=== PATIENT | female | born 1995 | race Caucasian/White ===

== ENCOUNTER → 2017-12-22 18:12 | Outpatient (CLI) | payer OTHER, SELFPAY ==
[2017-12-22 20:56] LABS: Chlamydia Trachomatis by PCR Negative (Negative); Neisserai gonorrhoeae by PCR Negative (Negative); Probe Check PASS; Sample Adequacy Control PASS; Specimen Processing Control PASS
== END ==
PROVIDERS: Visit Provider Nurse Practitioner Women's Health
DX: Z11.3 Encounter for screening for infections with a predominantly sexual mode of transmission (principal)
CPT/HCPCS: 87491; 87591

== ENCOUNTER → 2018-01-22 14:57 | Outpatient (CLI) | payer OTHER, SELFPAY | PROVIDERS: Visit Provider Obstetrics & Gynecology | DX: R35.0 Frequency of micturition (principal) | CPT/HCPCS: 87086; 87088 ==

== ENCOUNTER → 2018-01-27 11:09 | Outpatient (CLI) | payer OTHER, SELFPAY ==
[2018-01-27 14:49] LABS: Chlamydia Trachomatis by PCR Negative (Negative); Neisserai gonorrhoeae by PCR Negative (Negative); Probe Check PASS; Sample Adequacy Control PASS; Specimen Processing Control PASS
== END ==
PROVIDERS: Visit Provider Nurse Practitioner Women's Health
DX: Z11.3 Encounter for screening for infections with a predominantly sexual mode of transmission (principal)
CPT/HCPCS: 87491; 87591

== ENCOUNTER → 2018-02-15 09:02 | Outpatient (CLI) | payer OTHER, SELFPAY ==
[2018-02-15 12:02] LABS: HIV - WCH Non-Reactive (Nonreactive)
[2018-02-16 20:07] LABS: HCV Quant. RNA PCR HCV Not Detected IU/mL (.)
[2018-02-17 07:32] LABS: HSV 1 IgG < 0.91 index (0.00-0.90); HSV 2 IgG < 0.91 index (0.00-0.90)
[2018-02-19 05:43] LABS: Rapid Plasmin Reagin (RPR) NONREACTIVE (NONREACTIVE)
== END ==
PROVIDERS: Referring Provider Nurse Practitioner Women's Health; Visit Provider Nurse Practitioner Women's Health
DX: A64 Unspecified sexually transmitted disease (principal); Z11.3 Encounter for screening for infections with a predominantly sexual mode of transmission; Z20.2 Contact with and (suspected) exposure to infections with a predominantly sexual mode of transmission
CPT/HCPCS: 36415; 86592; 86695; 86696; 86703; 87522

== ENCOUNTER → 2018-02-15 18:24 | Outpatient (CLI) | payer OTHER, SELFPAY ==
[2018-02-15 20:31] LABS: Chlamydia Trachomatis by PCR Negative (Negative); Neisserai gonorrhoeae by PCR Negative (Negative); Probe Check PASS; Sample Adequacy Control PASS; Specimen Processing Control PASS
== END ==
PROVIDERS: Referring Provider Nurse Practitioner Women's Health; Visit Provider Nurse Practitioner Women's Health
DX: Z20.2 Contact with and (suspected) exposure to infections with a predominantly sexual mode of transmission (principal)
CPT/HCPCS: 87491; 87591

== ENCOUNTER → 2019-04-29 15:00 | Outpatient (CLI) | payer OTHER, SELFPAY ==
[2019-04-29 14:35] VITALS: BMI 31.2
[2019-04-29 16:34] LABS: HIV - WCH Non-Reactive (Nonreactive)
[2019-04-29 18:23] LABS: Chlamydia Trachomatis by PCR Negative (Negative); Neisserai gonorrhoeae by PCR Negative (Negative); Probe Check PASS; Sample Adequacy Control PASS; Specimen Processing Control PASS
[2019-05-02 20:06] LABS: HCV Quant. RNA PCR HCV Not Detected IU/mL (.)
[2019-05-03 00:28] LABS: HSV 1 IgG < 0.91 index (0.00-0.90); HSV 2 IgG < 0.91 index (0.00-0.90)
[2019-05-05 00:56] LABS: Rapid Plasmin Reagin (RPR) NONREACTIVE (NONREACTIVE)
[2019-05-05 16:01] LABS: HPV Reflexed? NOT INDICATED
== END ==
PROVIDERS: Referring Provider Nurse Practitioner Women's Health; Visit Provider Nurse Practitioner Women's Health
DX: Z11.3 Encounter for screening for infections with a predominantly sexual mode of transmission (principal); Z12.4 Encounter for screening for malignant neoplasm of cervix
CPT/HCPCS: 36415; 86592; 86695; 86696; 86703; 87491; 87522; 87591; 88175; G0145

== ENCOUNTER 2019-11-12 00:47 | Emergency (ER) | payer OTHER, SELFPAY ==
[2019-05-13 14:15] VITALS: BMI 31.2
[2019-11-12 00:49] VITALS: BP 169/119; PULSE 109; RESP 16; TEMP 37; O2SAT 97; BMI 38.2
--- NOTE | 2019-11-12 00:50 | RAD_ITS ---
STUDY: X-RAY - RIGHT FOOT CLINICAL: Female, 24 years old. fell down some stairs tonight -- c/o pain area of rt lateral malleolus TECHNIQUE: 3 view(s) of the foot. COMPARISON: None. FINDINGS: Normal talus, calcaneus, and tarsal bones. Normal visualized subtalar, talonavicular, calcaneocuboid, tarsal and tarsometatarsal articulations. Normal metatarsi. Normal metatarsophalangeal joint of the great toe. Normal tibial and fibular sesamoid bones. Normal interphalangeal joint of the great toe. Normal phalanges of the great toe. Normal second through fifth metatarsophalangeal joints. Normal interphalangeal joints and phalanges of the lesser toes. The soft tissue structures are unremarkable. RAD/Foot min 3 Views IMPRESSION: Normal x-ray examination of the foot. Electronically Signed: Ariel Green, at 1:37 EDT Tel , Service support ,
--- NOTE | 2019-11-12 00:50 | RAD_ITS ---
STUDY: X-RAY - RIGHT ANKLE REASON FOR EXAM: Female, 24 years old. fell down some stairs tonight -- c/o pain area of rt lateral malleolus TECHNIQUE: 3 view(s) of the ankle. COMPARISON: None. FINDINGS: Normal visualized distal tibia and fibula. Normal medial and lateral malleoli. Normal tibiotalar articulation and ankle mortise. Normal visualized talus and calcaneus. The visualized subtalar, talonavicular, calcaneocuboid and tarsal articulations are normal. Subcutaneous soft tissue edema is seen at the lateral aspect of the ankle. RAD/Ankle min 3 Views IMPRESSION: There is no acute bone injury of the ankle. Electronically Signed: Ariel Green, at 1:45 EDT Tel , Service support ,
--- NOTE | 2019-11-12 00:50 | ED.VIS.GEN ---
History of Present Illness Chief Complaint: Lower Extremity Injury Informant: Patient Narrative: Patient states that just prior to arrival she is coming down 5 stairs and she missed a couple steps and sustained an injury to the right ankle and foot. She states she felt a pop notes swelling and pain. She denies any other injuries. Past Medical History - Allergies and Home Meds Allergies/Adverse Reactions: Allergies No Known Allergies Allergy (Verified 05/13/19 13:53) Primary Care Physician: Kelsie Knight MD [NON-STAFF] - Smoking Status: Never smoker Review of Systems General: Denies: Chills, Fever, Sweats Eyes: Denies: Visual changes - bilaterally, Diplopia ENT: Denies: Rhinorrhea, Sore throat Cardiovascular: Denies: Chest pain, Palpitations Respiratory: Denies: Dyspnea, Cough, Dyspnea on exertion Gastrointestinal: Denies: Abdominal pain, Nausea, Vomiting, Diarrhea, Melena, Hematochezia Genitourinary: Denies: Dysuria, Hematuria, Frequency Musculoskeletal: Reports: Swelling, Extremity Pain. Denies: Back pain Skin: Denies: Rash, Wounds Neurological: Denies: Headache, Weakness, Numbness Physical Exam Inital Vital Signs reviewed: Yes General: Well nourished, Well developed, Obese, No Acute Distress Head: Normocephalic, Atraumatic Eyes: Perrl, EOMI ENT: Moist mucous membranes, No rhinorrhea Neck: Supple, Nontender Cardiovascular: Regular rate, Regular rhythm, No murmurs Respiratory: No distress, CTA bilaterally, Chest nontender Abdomen: Soft, Nontender, Nondistended, Normal bowel sounds Back: Nontender, Normal Inspection Extremities: Tenderness - Patient has pain swelling over the right ankle particular the lateral malleolus. There is some mild midfoot tenderness. No fifth metatarsal pain. No fibular head pain. There is also no tibial shaft pain Skin: Normal color, No rash Neurological: Alert, Oriented x3, Cranial nerves II-XII grossly intact, Normal Strength, Normal Sensation Psychological: Normal affect, Normal Mood Diagnostic/Tx/Re-eval Clinical Impression(s) from Imaging Studies Ankle X-Ray 11/12/19 00:50 IMPRESSION: There is no acute bone injury of the ankle. Electronically Signed: Ariel Green at 1:45 EDT Tel , Service support , Foot X-Ray 11/12/19 00:50 IMPRESSION: Normal x-ray examination of the foot. Electronically Signed: Ariel Green, at 1:37 EDT Tel , Service support , - Medical Decision Making X-rays of the foot and ankle were negative for fracture. Patient was placed in [place] wrap and crutches as needed until she is able to bear weight. Patient declined pain medication in the ED. I recommend Tylenol Motrin at home and continued ice patient should follow-up in 10 to 14 days if not improved ED Disposition - Plan for ED Patient: Disposition: Home or Assisted Living Diagnosis: Right ankle sprain Instructions: ED Sprain Ankle Referrals: Kelsie Knight MD [NON-STAFF] - 10-14 Days if not better
[2019-11-12 02:03] VITALS: BP 162/102; PULSE 115; RESP 15; O2SAT 98
== END 2019-11-12 02:07 | disposition home or self-care (01) ==
PROVIDERS: Emergency Provider Emergency Medicine; PCP Orthopaedic Surgery
DX: S93.401A Sprain of unspecified ligament of right ankle, initial encounter (principal); E66.9 Obesity, unspecified; W10.9XXA Fall (on) (from) unspecified stairs and steps, initial encounter; Y93.01 Activity, walking, marching and hiking; Y92.89 Other specified places as the place of occurrence of the external cause; Y99.8 Other external cause status
CPT/HCPCS: 73610; 73630; 99283

== ENCOUNTER → 2020-05-02 | Outpatient (CLI) | payer OTHER, SELFPAY ==
[2020-05-02 15:14] VITALS: BMI 41.8
[2020-05-02 19:22] LABS: Chlamydia Trachomatis by PCR Negative (Negative); Neisserai gonorrhoeae by PCR Negative (Negative); Probe Check PASS; Sample Adequacy Control PASS; Specimen Processing Control PASS
[2020-05-09 21:10] LABS: HPV APTIMA, High Risk Positive (Negative); HPV Reflexed? YES, CHARGE PATIENT
== END | disposition home or self-care (01) ==
LOC: LABSPEC 16:51
PROVIDERS: PCP Orthopaedic Surgery; Visit Provider Nurse Practitioner Women's Health
DX: Z12.4 Encounter for screening for malignant neoplasm of cervix (principal)
CPT/HCPCS: 87491; 87591; 87624; 88175; G0145

== ENCOUNTER 2020-10-28 16:50 | Emergency (ER) | payer OTHER, SELFPAY ==
[2020-05-02 15:14] VITALS: BMI 41.8
[2020-10-28] VITALS (7 sets, daily range): BP systolic 144–162; BP diastolic 87–115; PULSE 118–141; RESP 19–28; TEMP 36; O2SAT 92–94; BMI 39.9
--- NOTE | 2020-10-28 16:54 | EKG12_ITS ---
Test Reason : Blood Pressure : / mmHG Vent. Rate : 125 BPM Atrial Rate : 125 BPM P-R Int : 150 ms QRS Dur : 082 ms QT Int : 306 ms P-R-T Axes : 066 039 047 degrees QTc Int : 441 ms Sinus tachycardia Otherwise normal ECG Confirmed by BRISEIDA MEYER, MASON ([id number]), news editor CLARE SKAGGS ([id number]) on 10/29/2020 11:26:31 AM Referred By: SHEN Confirmed By:MASON GOINS MD
--- NOTE | 2020-10-28 17:00 | ED.VIS.DYS ---
HPI History of Present Illness Chief Complaint: Shortness of Breath Informant: patient Onset/Context/Timing Onset: Yesterday Context: gradual Timing: Continuous Quality: Positive for Wheezing Current Severity: Moderate Maximum Severity: Moderate Associated Symptoms cough, fever and clear sputum Chest Pain: Positive for Tightness Narrative Narrative: 25-year-old female no significant past medical nor surgical history. States yesterday she started having cough with clear sputum mild shortness of breath today worse with wheezing and a subjective fever at home. Denies nausea, vomiting or diarrhea. No history of DVT or PE. No recent travel, surgery or immobilization. She does smoke occasionally. She is on control pills. She denies any calf pain or swelling. No hemoptysis. She has had both Covid vaccinations. PE Risk Factors: Negative for Cancer, OCP + Smoking + > 35, Prior DVT or PE, Recent immobilization, Recent surgery and Recent travel Prior similar symptoms: No Recent Illness/Hospitalization: No [facility] Medical History (Updated 10/28/20 @ 19:[address] Deric Rodriguez MD) Anxiety and depression History of migraine headaches Home Medications venlafaxine 75 mg capsule,extended release 24 hr 150 mg PO DAILY 04/29/19 [History Last Taken Unknown] norethindrone (contraceptive) 0.35 mg tablet 0.35 mg PO QDAY #84 tab 05/02/20 [Rx Last Taken Unknown] albuterol sulfate [Proventil HFA] 2 puff INHALATION Q6H PRN #6.7 g 10/28/20 [Rx Last Taken Unknown] prednisone 40 mg PO DAILY 5 Days #10 tab 10/28/20 [Rx Last Taken Unknown] Allergy/AdvReac Type Severity Reaction Status Date / Time azithromycin Allergy Rash Verified 10/28/20 16:51 Family History Father Diabetes Hypertension Surgical History History of wisdom tooth extraction, class II edentulism Social History adopted: No household members: family housing: house number of children: 0 current occupational status: employed and student 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 Review of Systems ROS Unobtainable: Denies due to encephalopathy Constitutional Constitutional ED: Reports fever(s); Denies chills Eyes Eyes: Denies change in vision ENT ENT ED: Denies ear pain Cardiovascular Cardiovascular: Denies chest pain or palpitations Respiratory/Chest Respiratory/Chest: Reports cough, dyspnea and sputum Gastrointestinal Gastrointestinal: Denies abdominal pain, constipation, diarrhea, nausea or vomiting Genitourinary Genitourinary ED: Denies dysuria Musculoskeletal Musculoskeletal: Denies myalgias Integumentary Denies rash Neurologic Neurologic: Denies headache(s) Psychiatric Psychiatric: Reports anxiety; Denies depression Endocrine Endocrinology: Denies polyuria Hematologic/Lymphatic Hematologic/Lymphatic: Denies easy bruising Allergic/Immunologic Allergic/Immunologic ED: Denies urticaria EXAM Physical Exam Narrative Exam Narrative: Female anxious. Vital signs blood pressure 162/115 pulse 137 respiratory rate 28 pulse ox 93% on room air. She is actively wheezing inspiratory and expiratory. HEENT exam unremarkable. Neck nontender no JVD. No lymphadenopathy. Lungs expiratory expiratory wheezing bilaterally. Equal symmetrical. No rales or rhonchi. Heart tachycardic no murmur. Abdomen soft nontender. Moving all 4 extremities. Calves are nontender without edema or cords. Neurologic exam normal. Const Vital Signs: 10/28/20 16:51 10/28/20 17:18 10/28/20 17:19 Temperature 96.8 F L Temperature Source Temporal Pulse Rate 137 H 121 H Respiratory Rate 28 H 24 H Respiratory Effort Short of Breath Labored Respiratory Depth Deep Respiratory Pattern Tachypnea Blood Pressure 162/115 H 158/105 H Blood Pressure Mean 130 122 Pulse Ox 93 94 Oxygen Delivery Method Room Air Room Air Room Air 10/28/20 17:25 10/28/20 18:07 10/28/20 18:47 Temperature Temperature Source Pulse Rate 141 H 138 H 128 H Respiratory Rate 20 H 22 H 20 H Respiratory Effort Respiratory Depth Respiratory Pattern Normal Blood Pressure 153/104 H 144/87 H Blood Pressure Mean 120 106 Pulse Ox 94 94 Oxygen Delivery Method Room Air Room Air Positive well nourished and well developed General Appearance ED: well developed HEENT Reports moist mucous membranes atraumatic; Negative for trauma or tenderness Eyes PERRL and EOMs intact bilaterally Neck no lymphadenopathy, supple, no meningeal signs and no JVD General: Negative for tenderness Resp No normal respiratory effort and No clear to auscultation bilaterally Auscultation: wheezes Cardio regular rhythm and no murmurs; Negative for regular rate Rate: tachycardic GI non-tender, non-distended and no masses Auscultation: normoactive bowel sounds Palpation: soft; Negative for tender Back/Spine no CVA tenderness and normal to inspection General Back: Negative for CVA tenderness Extremity normal to inspection General Extremety ED: Negative for edema or tenderness General Extremity: Negative for edema Neuro oriented x3 and CN's II-XII intact bilaterally Sensorium / Orientation: alert, oriented to person and oriented to place Motor Exam: strength 5/5 throughout Psych mental status grossly normal Skin Lesions: no lesions Rashes: no rashes MDM MDM MDM Narrative Medical decision making narrative: Young female wheezing. This may be secondary to a URI or rule out pneumonia, rule out Covid versus other etiologies. I doubt he is cardiac etiology. I told to get the pulmonary emboli. Should be treated with aerosols both albuterol and DuoNeb and Solu-Medrol IV. Labs and x-ray are being obtained. Repeat exam patient is doing well at 7:35 PM. Patient looks much better and feels comfortable being discharged home. She still has mild wheezing. No distress however. I believe is secondary to viral syndrome with bronchospasm. She does not need antibiotics. She be placed on 40 mg of prednisone a day for 5 days and inhaler. Lab Data Attestation: I reviewed the patient's lab results. Lab results narrative: CBC is elevated white count of 15. Hemoglobin 17. No bands. Electrolytes unremarkable gap 11 normal creatinine. Covid is negative. Labs: Laboratory Results - last 24 hr 10/28/20 10/28/20 17:10 17:10 WBC 15.0 H RBC 5.84 H Hgb 17.1 H Hct 49.8 H MCV 85.3 MCH 29.3 MCHC 34.3 RDW Std Deviation 39.4 RDW Coeff of Killian 12.8 Plt Count 353 MPV 10.5 Immature Gran % (Auto) 0.500 Neut % (Auto) 76.2 H Lymph % (Auto) 10.6 L Bourbon % (Auto) 7.8 Eos % (Auto) 4.1 Baso % (Auto) 0.8 Absolute Neuts (auto) 11.4 H Absolute Lymphs (auto) 1.59 Nucleated RBC % 0 Sodium 138 Potassium 3.8 Chloride 107 Carbon Dioxide 20.0 L Anion Gap 11 BUN 9 Creatinine 0.75 Estim Creat Clear Calc 104.98 Est GFR (MDRD) Af Amer 124 Est GFR (MDRD) Non-Af 102 BUN/Creatinine Ratio 12.0 Glucose 101 Calcium 9.2 Radiography Chest X-Ray - ED: 1 View, Read by ED Physician, Read by Radiologist, Heart, Lungs, Mediastinum, Bony Structures and No Acute Disease Diagnostic Testing: Radiology Impression Chest X-Ray 10/28/20 17:55 IMPRESSION: No radiographic evidence of acute cardiopulmonary disease. at 1852 Reported and signed by: Tank Lopez MD Electronically Signed: Tank Lopez MD at 18:51 EDT Tel , Service support , Rhythm Strip Rhythm Strip: Sinus Rhythm Rate: 125 Ectopy: None EKG Initial EKG: Attestation: I personally reviewed and interpreted this EKG as follows: Interpretation: Sinus Rhythm, No Acute Injury Pattern and Sinus Tachycardia Comments: Sinus tachycardia rate of 125 no acute signs of NH, ischemia nor S1Q3T3. Prior EKG tracings: not available for review Prior: No Prior Discharge Plan Triage Chief Complaint: Shortness of Breath ED Provider: Deric Rodriguez Dx/Rx/DC Orders Clinical Impression: Bronchitis with acute wheezing Instructions: ED Bronchitis with Wheezing (Adult) Prescriptions: New prednisone 20 mg tablet 40 mg PO DAILY 5 Days Qty: 10 RF: 0 albuterol sulfate [Proventil HFA] 90 mcg/actuation HFA aerosol inhaler 2 puff inhalation Q6H PRN (Reason: shortness of breath or wheezing) Qty: 6.7 RF: 0 No Action venlafaxine [Effexor XR] 75 mg capsule,extended release 24hr 150 mg PO DAILY RF: 0 norethindrone (contraceptive) [Allie] 0.35 mg tablet 0.35 mg PO QDAY Qty: 84 RF: 4 Primary Care Provider: Guilherme Kemp Referrals: Guilherme Kemp MD [Primary Care Provider] - 3-5 Days if not improving Activity Restrictions/Additional Instructions: Proventil inhaler 1 to 2 puffs every 2-4 hours as needed. Prednisone 40 mg a day for the next 5 days starting tomorrow you received a dose here. Follow-up with your doctor if not improving return if worse. Disposition Disposition: Home, self care
[2020-10-28] MEDS: MethylPREDNISolone 125 MG/2 ML Vial IV (17:13)
[2020-10-28] MEDS: Albuterol 2.5 MG/3 ML VIAL.NEB. INHALATION ×3 (17:25)
[2020-10-28] MEDS: Ipratropium/Albuterol Sulfate 3 ML AMPUL.NEB INHALATION (17:25)
[2020-10-28 17:27] LABS: Absolute Lymphocyte Count 1.59 X10^3/uL (0.83-4.51); Absolute Neutrophil Count 11.4 X10^3/uL (2.0-7.7); Basophil# 0.12 X10^3/uL; Basophil% 0.8 % (0-1); Eosinophil# 0.62 X10^3/uL; Eosinophils% 4.1 % (0-5); Hematocrit 49.8 % (37-47); Hemoglobin 17.1 g/dL (12.0-15.0); Lymphocyte # 1.59 X10^3/ul (0.83-4.51); Lymphocyte % 10.6 % (19-41); Mean Corp Hgb Conc 34.3 g/dL (32-36); Mean Corpuscular Hgb 29.3 pg (27.0-32.0); Mean Corpuscular Volume 85.3 fL (81-99); Mean Platelet Vol. 10.5 fl (6.2-12.0); Monocyte# 1.17 X10^3/uL; Monocyte% 7.8 % (0-10); NRBC Flagged by Analyzer 0 % (0-5); Neutrophil # 11.42 X10^3/uL (2.7-7.7); Neutrophil % 76.2 % (47-70); Platelet Count 353 K/mm3 (150-450); RBC Distribution Width CV 12.8 % (11.6-14.6); RBC Distribution Width SD 39.4 fl (35.1-43.9); Red Blood Count 5.84 M/mm3 (4.2-5.4)
[2020-10-28 17:41] LABS: Anion Gap 11 (5-15); BUN 9 mg/dL (7-18); Calcium,Total 9.2 mg/dL (8.5-10.1); Chloride 107 mmol/L (98-107); Creatinine, Serum 0.75 mg/dL (0.55-1.02); EST Glomerular Filtration Rate 102 mL/min (>60); Est Glom Filt Rate - Afr Amer 124 mL/min (>60); Estimated Creatinine Clearance 104.98 ml/min; Glucose 101 mg/dL (74-106); Potassium 3.8 mmol/L (3.5-5.1); Sodium Level 138 mmol/L (136-145)
--- NOTE | 2020-10-28 17:55 | RAD_ITS ---
HISTORY: chest pain EXAMINATION/TECHNIQUE: XR Chest 1 View: Portable upright AP chest x-ray COMPARISON: None FINDINGS: LINES/DEVICES: None. LUNGS: No consolidation, edema or effusion. No pneumothorax. MEDIASTINUM AND CARDIOVASCULAR STRUCTURES: Cardiac silhouette not enlarged. Central airways and mediastinal contour are unremarkable. BONES AND SOFT TISSUES: No acute bony abnormalities. RAD/Chest 1 View (Portable) IMPRESSION: No radiographic evidence of acute cardiopulmonary disease. at 1852 Reported and signed by: Tank Lopez MD Electronically Signed: Tank Lopez MD at 18:51 EDT Tel , Service support ,
== END 2020-10-28 20:03 | disposition home or self-care (01) ==
PROVIDERS: Emergency Provider Emergency Medicine; PCP Orthopaedic Surgery
DX: J40 Bronchitis, not specified as acute or chronic (principal); F32.9 Major depressive disorder, single episode, unspecified; Z79.899 Other long term (current) drug therapy
CPT/HCPCS: 71045; 80048; 85025; 87426; 93005; 94640; 96374; 99284; A4216

== ENCOUNTER → 2021-05-08 | Outpatient (CLI) | payer OTHER, SELFPAY ==
[2021-05-12 07:06] LABS: Chlamydia By Nucleic Acid AMP Negative (Negative)
[2021-05-12 09:44] LABS: Gonococcus By Nucleic Acid AMP Negative (Negative)
[2021-05-15 16:24] LABS: HPV Reflexed? NOT INDICATED
== END | disposition home or self-care (01) ==
LOC: LABSPEC 12:44
PROVIDERS: PCP Orthopaedic Surgery; Referring Provider Nurse Practitioner Women's Health; Visit Provider Nurse Practitioner Women's Health
DX: Z12.4 Encounter for screening for malignant neoplasm of cervix (principal); R87.610 Atypical squamous cells of undetermined significance on cytologic smear of cervix (ASC-US); Z11.3 Encounter for screening for infections with a predominantly sexual mode of transmission
CPT/HCPCS: 87491; 87591; 88175; G0145

== ENCOUNTER 2021-07-24 07:27 | Emergency (ER) | payer OTHER, SELFPAY ==
[2021-07-24 07:27] VITALS: BP 162/113; PULSE 134; RESP 22; TEMP 36.2; O2SAT 95; BMI 40.3
--- NOTE | 2021-07-24 07:43 | ED.VIS.DYS ---
HPI History of Present Illness Chief Complaint: Shortness of Breath Narrative Narrative: Patient with past medical history of asthma presents with increasing shortness of breath since yesterday. She states she became more short of breath throughout the day and through the evening so she presents this morning because she has been using her inhaler every 2 hours. She states they are ineffective. She is a non-smoker. She states that she started having exacerbations of asthma when she developed bronchitis last year. That was last time she was on steroids. She denies any chest pain. No leg swelling. No fevers or chills. No nausea or vomiting. No other symptoms except for those consistent with an asthma exacerbation. She has never been hospitalized for her breathing difficulties and never intubated. [facility] Medical History Anxiety and depression Asthma History of bronchitis History of migraine headaches Hypertension Home Medications venlafaxine 75 mg capsule,extended release 24 hr 150 mg PO DAILY 04/29/19 [History Last Taken Unknown] albuterol sulfate [Proventil HFA] 2 puff INHALATION Q6H PRN #6.7 g 10/28/20 [Rx Last Taken Unknown] lisinopril 10 mg tablet 10 mg PO DAILY 05/08/21 [History Last Taken Unknown] norethindrone (contraceptive) 0.35 mg tablet 0.35 mg PO QDAY #84 tab 05/08/21 [Rx Last Taken Unknown] albuterol sulfate [Proventil HFA] 2 puff INHALATION Q4H PRN #8.5 g 07/24/21 [Rx Last Taken Unknown] prednisone 40 mg PO DAILY #14 tab 07/24/21 [Rx Last Taken Unknown] Allergy/AdvReac Type Severity Reaction Status Date / Time azithromycin Allergy Rash Verified 07/24/21 07:29 prednisone AdvReac Mild Rash Verified 07/24/21 07:29 Family History Father Diabetes Hypertension Surgical History History of wisdom tooth extraction, class II edentulism Social History adopted: No household members: family housing: house number of children: 0 current occupational status: employed and student current occupation: [employer] current occupational exposures/hazards: No pets and animals: Yes history of recent travel: Yes out of country: Yes Smoking Status: Never smoker second hand exposure: Yes alcohol intake: current alcohol intake frequency: a few times a month Alcohol type: beer substance use type: does not use caffeine: Yes what type of physical activity do you participate in: none seatbelt use: always do you feel safe at home: Yes ROS ROS ED ROS Narrative Constitutional: No fever, no chills. HEENT: No sore throat. No neck pain. No loss of vision. No rhinorrhea. Cardiovascular: No chest pain. No palpitations. No pedal edema. Respiratory: Occasional cough with clear sputum production, positive shortness of breath. Abdominal: No abdominal pain. No nausea. No vomiting. Genitourinary: No dysuria. No hematuria. Musculoskeletal: No myalgias. No arthralgias. Neurologic: No headaches. No dizziness. No lightheadedness. Skin: No rash. No change in color. Psychiatric: No depression. No anxiety. EXAM Physical Exam Narrative Exam Narrative: Afebrile. Vital signs noted. HEENT: Normocephalic. Atraumatic. PERRL, EOMI. Neck soft and supple. No point tenderness or step off. Cardiovascular: Positive tachycardia no murmurs, rubs, or gallops appreciated. Respiratory: No tachypnea. Diffuse expiratory wheezing. Moving a good amount of air and speaking in full sentences. Gastrointestinal: Abdomen soft, nontender, with normoactive bowel sounds. No rebound or guarding. Neurological: Awake. Alert. Nonfocal, nonlateralizing. Skin: No rash. Normal color. No pallor. Musculoskeletal: No pedal edema. Full range of motion extremities. Const Vital Signs: 07/24/21 07:27 07/24/21 07:36 07/24/21 07:58 Temperature 97.2 F L Temperature Source Temporal Pulse Rate 134 H 122 H Respiratory Rate 22 H 28 H Respiratory Effort Short of Breath Labored Respiratory Pattern Tachypnea Blood Pressure 162/113 H Blood Pressure Mean 129 Pulse Ox 95 Oxygen Delivery Method Room Air MDM MDM MDM Narrative Medical decision making narrative: Pulse ox is 95% on room air. She is slightly tachypneic at 22 breaths/min. She will be given a DuoNeb aerosolized treatment and chest x-ray obtained. Although she lists a rash to prednisone, she is willing to take it because she thinks that she may have had a mononucleosis rash because she had been given antibiotics at the same time. Her EKG demonstrates normal sinus rhythm/sinus tachycardia at 119 bpm without ectopy or acute ST changes. Chest x-ray shows no evidence of pneumonia or pneumothorax as interpreted by myself. After her DuoNeb aerosolized treatment and prednisone, she is ambulatory in the ED without dyspnea on exertion. She is moving a good amount of air. There is no expiratory wheezing. She still felt short of breath so she will be given 1 albuterol aerosolized treatment prior to discharge. I wrote her prescriptions for another inhaler and for a prednisone burst for the next 7 days. I feel she be discharged safely home with follow-up. Return instructions to the emergency department were reviewed. Disposition is discharged home in stable condition. Radiography Diagnostic Testing: Clinical Impression(s) from Imaging Studies Chest X-Ray 07/24/21 08:10 IMPRESSION: Normal x-ray examination of the chest. Electronically Signed: Jose Severino MD at 8:48 EDT , Discharge Plan Triage Chief Complaint: Shortness of Breath ED Provider: Alexis Toth Dx/Rx/DC Orders Clinical Impression: Asthma attack, Bronchitis Instructions: ED Asthma, Acute (Adult), ED Bronchitis, No Antibiotic (Adult) Prescriptions: New albuterol sulfate [Proventil HFA] 90 mcg/actuation HFA aerosol inhaler 2 puff inhalation Q4H PRN (Reason: shortness of breath or wheezing) Qty: 8.5 RF: 0 prednisone 20 mg tablet 40 mg PO DAILY Qty: 14 RF: 0 No Action venlafaxine [Effexor XR] 75 mg capsule,extended release 24hr 150 mg PO DAILY RF: 0 lisinopril 10 mg tablet 10 mg PO DAILY RF: 0 norethindrone (contraceptive) [Allie] 0.35 mg tablet 0.35 mg PO QDAY Qty: 84 RF: 4 albuterol sulfate [Proventil HFA] 90 mcg/actuation HFA aerosol inhaler 2 puff inhalation Q6H PRN (Reason: shortness of breath or wheezing) Qty: 6.7 RF: 0 Primary Care Provider: Kelsie Thomas Referrals: Kelsie Thomas MD [Primary Care Provider] -
--- NOTE | 2021-07-24 07:46 | EKG12_ITS ---
Test Reason : SOB Blood Pressure : / mmHG Vent. Rate : 119 BPM Atrial Rate : 119 BPM P-R Int : 154 ms QRS Dur : 082 ms QT Int : 318 ms P-R-T Axes : 071 058 077 degrees QTc Int : 447 ms Sinus tachycardia Otherwise normal ECG Confirmed by BRISEIDA MEYER, MASON ([id number]), design editor CLARE SKAGGS ([id number]) on 07/25/2021 9:12:57 AM Referred By: Confirmed By:MASON GOINS MD
[2021-07-24] MEDS: Ipratropium/Albuterol Sulfate 3 ML AMPUL.NEB INHALATION (07:54)
[2021-07-24 07:58] VITALS: PULSE 122; RESP 28
--- NOTE | 2021-07-24 08:08 | ED.RN ---
FAXED PTS CHART TO [facility] WITH CRISIS; AWARE PT NEEDS EVALUATED
[2021-07-24] MEDS: predniSONE 20 MG Tablet 40 MG PO (08:09)
--- NOTE | 2021-07-24 08:10 | RAD_ITS ---
STUDY: X-RAY CHEST REASON FOR EXAM: Female, 25 years old. Shortness of Breath TECHNIQUE: Single AP portable view of the chest. COMPARISON: 10/28/2020 FINDINGS: The lungs are clear and expanded. There is no demonstrated pleural abnormality. Normal size heart. Normal mediastinum and dru. Normal visualized pulmonary arteries. Normal visualized aortic arch and descending thoracic aorta. Normal visualized thoracic spine. Normal visualized ribs, clavicles, and shoulders. There is no demonstrated abnormality of the visualized soft tissue structures of the upper abdomen. RAD/Chest 1 View (Portable) IMPRESSION: Normal x-ray examination of the chest. Electronically Signed: Jose Severino MD at 8:48 EDT ,
[2021-07-24] MEDS: Albuterol 2.5 MG/3 ML VIAL.NEB. INHALATION (09:36)
[2021-07-24 09:46] VITALS: PULSE 134; RESP 22; O2SAT 95
== END 2021-07-24 09:47 | disposition home or self-care (01) ==
PROVIDERS: Emergency Provider Emergency Medicine; PCP Family Medicine; Visit Provider Emergency Medicine
DX: J45.901 Unspecified asthma with (acute) exacerbation (principal); I10 Essential (primary) hypertension; Z79.899 Other long term (current) drug therapy
CPT/HCPCS: 71045; 93005; 94640; 99283

== ENCOUNTER 2021-11-30 07:12 | Emergency (ER) | payer OTHER, SELFPAY ==
[2021-11-30 07:13] VITALS: BP 125/88; PULSE 102; RESP 14; TEMP 36.8; O2SAT 97; BMI 39.9
--- NOTE | 2021-11-30 07:39 | EDS_ITS ---
HPI History of Present Illness Chief Complaint: Bite Detail of Chief Complaint: Ferret bite to left hand Informant: patient Narrative Narrative: Patient presents to the emergency department complaint of a bite wound to her left hand from her pet ferret. Patient states the ferret started screaming in the middle of the night about 3 hours ago and she picked it up and he then bit her on the left hand. Ferret has not been exposed to any other animals other than a house cat. Patient 2 hours later noticed that she had swelling of the left hand as well as face and hives started on her body. Patient did place Bactine on the wound initially as well as hydrogen peroxide. Patient states that she had a little bit of a panic attack as well. She denies any difficulty breathing. Patient is right-hand dominant. Patient unsure of her last tetanus. [facility] Medical History Anxiety and depression Asthma History of bronchitis History of migraine headaches Hypertension Home Medications venlafaxine 75 mg capsule,extended release 24 hr (Effexor XR) 150 mg PO DAILY 04/29/19 [History Last Taken Unknown] albuterol sulfate 90 mcg/actuation aerosol inhaler (Proventil HFA) 2 puff inhalation Q6H PRN shortness of breath or wheezing #6.7 grams 10/28/20 [Rx Last Taken Unknown] lisinopril 10 mg tablet 10 mg PO DAILY 05/08/21 [History Last Taken Unknown] norethindrone (contraceptive) 0.35 mg tablet (Allie) 0.35 mg PO QDAY #84 tabs 05/08/21 [Rx Last Taken Unknown] albuterol sulfate 90 mcg/actuation aerosol inhaler (Proventil HFA) 2 puff inhalation Q4H PRN shortness of breath or wheezing #8.5 grams 07/24/21 [Rx Last Taken Unknown] prednisone 20 mg tablet 40 mg PO DAILY #14 tabs 07/24/21 [Rx Last Taken Unknown] amoxicillin 875 mg-potassium clavulanate 125 mg tablet 875 mg PO Q12H #20 TABLETS 11/30/21 [Rx Last Taken Unknown] Allergy/AdvReac Type Severity Reaction Status Date / Time azithromycin Allergy Rash Verified 11/30/21 07:16 prednisone AdvReac Mild Rash Verified 11/30/21 07:16 Family History Father Diabetes Hypertension Surgical History History of wisdom tooth extraction, class II edentulism Social History adopted: No household members: family housing: house number of children: 0 current occupational status: employed and student current occupation: [employer] current occupational exposures/hazards: No pets and animals: Yes history of recent travel: Yes out of country: Yes Smoking Status: Never smoker second hand exposure: Yes alcohol intake: current alcohol intake frequency: a few times a month Alcohol type: beer substance use type: does not use caffeine: Yes what type of physical activity do you participate in: none seatbelt use: always do you feel safe at home: Yes ROS ROS ED Review of Systems ROS Unobtainable: other Constitutional Constitutional ED: Reports lethargy; Denies chills, fever(s), sweats or weight loss Eyes Eyes: Denies blurry vision, change in vision or diplopia ENT ENT ED: Denies rhinorrhea or sore throat Cardiovascular Cardiovascular: Reports chest pain and racing heartbeat; Denies orthopnea Respiratory/Chest Respiratory/Chest: Reports dyspnea and dyspnea on exertion; Denies cough, orthopnea or sputum Gastrointestinal Gastrointestinal: Denies abdominal pain, diarrhea, nausea or vomiting Genitourinary Genitourinary ED: Denies dysuria, hematuria or urinary frequency Musculoskeletal Musculoskeletal: Reports other Details: Left hand pain and swelling ; Denies arthralgias, back pain, myalgias or neck pain Integumentary Reports rash; Denies abscess or Abrasions Neurologic Neurologic: Denies headache(s) or weakness Psychiatric Psychiatric: Denies anxiety, depression or suicidal thoughts Endocrine Endocrinology: Denies polydipsia, polyphagia or polyuria Hematologic/Lymphatic Hematologic/Lymphatic: Denies easy bleeding, easy bruising or lymphadenopathy Allergic/Immunologic Allergic/Immunologic ED: Denies mouth swelling, tongue swelling or urticaria EXAM Physical Exam Const Vital Signs: 11/30/21 07:13 Temperature 98.2 F Temperature Source Temporal Pulse Rate 102 H Respiratory Rate 14 Blood Pressure 125/88 H Blood Pressure Mean 100 Pulse Ox 97 Oxygen Delivery Method Room Air Positive well nourished and well developed General Appearance ED: well developed and NAD HEENT Reports TM's clear and moist mucous membranes normocephalic and atraumatic; Negative for trauma or tenderness Tympanic Membrane ED: Yes TM's clear Eyes PERRL and EOMs intact bilaterally General Eye ED: Negative for pale conjunctiva or scleral icterus Neck no lymphadenopathy, supple and no JVD General: Negative for tenderness Chest Wall inspection of chest normal and palpation of chest normal Chest: Negative for tenderness Resp normal respiratory effort and clear to auscultation bilaterally Effort and Inspection: Negative for respiratory distress or pain with movement Auscultation: Negative for rhonchi, wheezes or diminished lung sounds Cardio regular rate, regular rhythm, S1 normal heart sound, S2 normal heart sound and no murmurs Peripheral Pulses: pulses 2+ throughout GI normal to inspection, nondistended, normoactive bowel sounds, soft to palpation, non-tender, non-distended and no masses Back/Spine no CVA tenderness and no thoracic nor lumbar tenderness Extremity Extremity Narrative: Left hand-patient has a small puncture wound over the palmar aspect of the first MCP joint. She has diffuse soft tissue swelling and erythema. Patient has normal range of motion of all digits. She is neurovascular intact. General Extremety ED: Negative for edema General Extremity: Negative for edema Neuro oriented x3, CN's II-XII intact bilaterally, no sensory deficits noted and gait normal Sensorium / Orientation: awake, alert, oriented to person, oriented to place and oriented to time Motor Exam: strength 5/5 throughout and strength abnormal Psych mental status grossly normal Skin Skin Narrative: Patient has a raised erythematous blanchable rash typical of urticaria involving the face as well as extremities and trunk. MDM MDM MDM Narrative Medical decision making narrative: Patient was given a dose of Benadryl for the urticaria. It is unclear the cause of the urticaria if it was stress related from her panic attack versus related to the Bactine or the hydrogen peroxide that she placed on the wound. Patient will be given tetanus booster. She will be started on Augmentin. Patient is allergic to prednisone therefore will hold off on steroids. I did outline the area of erythema on her hand with marker although its unclear if this is early cellulitis versus inflammatory response given her generalized urticaria as well. Patient advised to return if increasing pain, redness, swelling, fever, or condition should worsen anyway. I do not feel patient needs treatment for rabies as this is a very low risk exposure. Discharge Plan Triage Chief Complaint: Bite ED Provider: Kanu Tran Dx/Rx/DC Orders Clinical Impression: Animal bite, Urticaria, Cellulitis Instructions: ED Animal Bite (General), ED Cellulitis, ED Hives (Adult) Prescriptions: New amoxicillin-pot clavulanate [amoxicillin-pot clavulanate] 875-125 mg tablet 875 mg PO Q12H Qty: 20 0RF No Action venlafaxine [Effexor XR] 75 mg capsule,extended release 24hr 150 mg PO DAILY lisinopril 10 mg tablet 10 mg PO DAILY norethindrone (contraceptive) [Allie] 0.35 mg tablet 0.35 mg PO QDAY Qty: 84 4RF Rx Instructions: start day 1 of menstrual cycle albuterol sulfate [Proventil HFA] 90 mcg/actuation HFA aerosol inhaler 2 puff inhalation Q6H PRN (Reason: shortness of breath or wheezing) Qty: 6.7 0RF albuterol sulfate [Proventil HFA] 90 mcg/actuation HFA aerosol inhaler 2 puff inhalation Q4H PRN (Reason: shortness of breath or wheezing) Qty: 8.5 0RF prednisone 20 mg tablet 40 mg PO DAILY Qty: 14 0RF Primary Care Provider: Kelsie Thomas Referrals: Kelsie Thomas MD [Primary Care Provider] - 3-5 Days Activity Restrictions/Additional Instructions: Take Benadryl every 8 hours as needed for rash and itching. Disposition Disposition: Home, Self Care
[2021-11-30] MEDS: Amox/Clavulanate 875 MG Tablet PO (07:56)
[2021-11-30] MEDS: DiphenhydrAMINE 25 MG Capsule 50 MG PO (07:57)
[2021-11-30] MEDS: Diphth,Pertuss(Acell),Tet Vac 0.5 ML Vial IM (07:57)
== END 2021-11-30 08:22 | disposition home or self-care (01) ==
PROVIDERS: Emergency Provider Emergency Medicine; PCP Family Medicine; Visit Provider Emergency Medicine
DX: S61.452A Open bite of left hand, initial encounter (principal); L50.9 Urticaria, unspecified; I10 Essential (primary) hypertension; W53.81XA Bitten by other rodent, initial encounter; Z79.52 Long term (current) use of systemic steroids; Z79.899 Other long term (current) drug therapy; Z23 Encounter for immunization
CPT/HCPCS: 90471; 90715; 99283

== ENCOUNTER → 2022-05-13 | Outpatient (CLI) | payer OTHER, SELFPAY ==
[2022-05-17 14:22] LABS: HPV Reflexed? NOT INDICATED
== END | disposition home or self-care (01) ==
LOC: LABSPEC 11:14
PROVIDERS: PCP Family Medicine; Visit Provider Nurse Practitioner Women's Health
DX: Z12.4 Encounter for screening for malignant neoplasm of cervix (principal)
CPT/HCPCS: 88175; G0145

== ENCOUNTER 2022-08-26 15:40 | Emergency (ER) | payer OTHER, SELFPAY ==
[2022-08-26 15:41] VITALS: BP 154/114; PULSE 128; RESP 20; TEMP 36.1; O2SAT 96; BMI 37.8
[2022-08-26 16:15] VITALS: BP 145/109; PULSE 109; RESP 18; O2SAT 96
--- NOTE | 2022-08-26 16:15 | RAD_ITS ---
STUDY: X-RAY CHEST REASON FOR EXAM: Female, 26 years old. Shortness of breath. TECHNIQUE: Single AP portable view of the chest. COMPARISON: July 24, 2021. FINDINGS: The lungs are clear and expanded. There is no demonstrated pleural abnormality. Normal size heart. Normal mediastinum and dru. Normal visualized pulmonary arteries. Normal visualized aortic arch and descending thoracic aorta. Normal visualized thoracic spine. Normal visualized ribs, clavicles, and shoulders. There is no demonstrated abnormality of the visualized soft tissue structures of the upper abdomen. RAD/Chest 1 View (Portable) IMPRESSION: No acute cardiopulmonary disease or major interval change. Electronically Signed: Minh Sheffield DO at 17:29 EDT ,
[2022-08-26] MEDS: predniSONE 20 MG Tablet 60 MG PO (17:05)
--- NOTE | 2022-08-26 17:20 | EX.ED.DYSGE1 ---
HPI History of Present Illness Chief Complaint: Shortness of Breath Informant: patient Narrative Narrative: Patient presents with cough and wheezing. She had a bad episode of bronchitis about 2 years ago. Now every now and then she gets bronchitis is just hard to break. She is on a long-term inhaled steroid but does not recall the name. She still has this. She uses an albuterol inhaler about once a week. The last 2 weeks she has been using the albuterol inhaler just a little bit more but did not feel ill. Last about 4 to 5 days she has been having a dry nonproductive cough. She has been wheezing a lot more. The albuterol helps but the wheezing just comes back. She is comfortable sitting still but when she gets active she feels the wheezing worse. She is not having chest pain. No hemoptysis. No fever. No leg pain or swelling. No history of DVT or PE. [facility] Medical History Anxiety and depression Asthma History of bronchitis History of migraine headaches Hypertension Home Medications venlafaxine 75 mg capsule,extended release 24 hr (Effexor XR) 150 mg PO DAILY 04/29/19 [History Last Taken Unknown] albuterol sulfate 90 mcg/actuation aerosol inhaler (Proventil HFA) 2 puff inhalation Q6H PRN shortness of breath or wheezing #6.7 grams 10/28/20 [Rx Last Taken Unknown] albuterol sulfate 90 mcg/actuation aerosol inhaler (Proventil HFA) 2 puff inhalation Q4H PRN shortness of breath or wheezing #8.5 grams 07/24/21 [Rx Last Taken Unknown] lisinopril 10 mg tablet 20 mg PO DAILY 05/13/22 [History Last Taken Unknown] norethindrone (contraceptive) 0.35 mg tablet (Allie) 0.35 mg PO QDAY #84 tabs 05/13/22 [Rx Last Taken Unknown] albuterol sulfate 90 mcg/actuation aerosol inhaler (Ventolin HFA) 2 puff inhalation Q4H PRN PRN Wheezing ##1 08/26/22 [Rx Last Taken Unknown] prednisone 20 mg tablet 60 mg PO DAILY #15 TABLETS 08/26/22 [Rx Last Taken Unknown] Allergy/AdvReac Type Severity Reaction Status Date / Time azithromycin Allergy Rash Verified 05/13/22 08:26 Family History Father Diabetes Hypertension Surgical History History of wisdom tooth extraction, class II edentulism Social History adopted: No household members: family housing: house number of children: 0 current occupational status: employed and student current occupation: [employer] current occupational exposures/hazards: No pets and animals: Yes history of recent travel: Yes out of country: Yes Smoking Status: Never smoker second hand exposure: Yes alcohol intake: current alcohol intake frequency: a few times a month Alcohol type: beer substance use type: does not use caffeine: Yes what type of physical activity do you participate in: none seatbelt use: always do you feel safe at home: Yes ROS ROS ED Constitutional Constitutional ED: Denies chills, fever(s) or subjective ENT ENT ED: Reports rhinorrhea; Denies ear pain or sore throat Cardiovascular Cardiovascular: Denies chest pain or palpitations Respiratory/Chest Respiratory/Chest: Reports cough and dyspnea; Denies sputum Gastrointestinal Gastrointestinal: Denies diarrhea, nausea or vomiting Genitourinary Genitourinary ED: Denies dysuria Musculoskeletal Musculoskeletal: Denies myalgias Integumentary Denies rash Neurologic Neurologic: Denies headache(s) Endocrine Endocrinology: Denies polydipsia or polyuria Hematologic/Lymphatic Hematologic/Lymphatic: Denies easy bleeding or easy bruising Allergic/Immunologic Allergic/Immunologic ED: Denies urticaria EXAM Physical Exam Narrative Exam Narrative: Patient awake alert no acute distress sitting calmly in bed. Breathing is very easy and unlabored while sitting still. HEENT shows no intraoral lesions or petechiae. No thrush. Mild nasal congestion Neck shows no JVD or stridor Lungs do show diffuse expiratory wheezing. No rhonchi. No pain with a deep breath. Heart rate is about 100. No murmur gallop or rub peripheral pulses are normal. Abdomen is soft nontender Extremities show no edema cords or tenderness or asymmetry. Const Vital Signs: 08/26/22 15:41 08/26/22 16:15 08/26/22 16:17 Temperature 97 F L Temperature Source Temporal Pulse Rate 128 H 109 H Respiratory Rate 20 H 18 Respiratory Effort Short of Breath Respiratory Depth Normal Respiratory Pattern Normal Blood Pressure 154/114 H 145/109 H Blood Pressure Mean 127 121 Pulse Ox 96 96 Oxygen Delivery Method Room Air Room Air MDM MDM MDM Narrative Medical decision making narrative: I independent interpretation of the patient's single AP chest shows no acute process. No infiltrate. No pneumothorax final reading is pending. Patient does have a history of asthma and wheezing. I will get her started on steroids. I am not seeing an indication for antibiotics with no infiltrate, sputum production or fever. Patient has wheezing coughing and not having pain or hypoxia or hemoptysis. I do not think we need to work her up for pulmonary embolus. We did discuss reasons to return. Discharge Plan Triage Chief Complaint: Shortness of Breath ED Provider: Huber Marmolejo Dx/Rx/DC Orders Clinical Impression: Acute bronchitis with bronchospasm Instructions: ED Bronchitis with Wheezing (Adult) Prescriptions: New prednisone 20 mg tablet 60 mg PO DAILY Qty: 15 0RF albuterol sulfate [Ventolin HFA] 90 mcg/actuation HFA aerosol inhaler 2 puff inhalation Q4H PRN PRN (Reason: Wheezing) Qty: 1 0RF No Action venlafaxine [Effexor XR] 75 mg capsule,extended release 24hr 150 mg PO DAILY lisinopril 10 mg tablet 20 mg PO DAILY norethindrone (contraceptive) [Allie] 0.35 mg tablet 0.35 mg PO QDAY Qty: 84 4RF Rx Instructions: start day 1 of menstrual cycle albuterol sulfate [Proventil HFA] 90 mcg/actuation HFA aerosol inhaler 2 puff inhalation Q6H PRN (Reason: shortness of breath or wheezing) Qty: 6.7 0RF albuterol sulfate [Proventil HFA] 90 mcg/actuation HFA aerosol inhaler 2 puff inhalation Q4H PRN (Reason: shortness of breath or wheezing) Qty: 8.5 0RF Primary Care Provider: Kelsie Thomas Referrals: Kelsie Thomas MD [Primary Care Provider] - 3-5 Days if not improving Disposition Disposition: Home, Self Care
[2022-08-26] MEDS: Albuterol Sulfate 8 gm Inhaler (60 puffs) 2 PUFF INHALATION (17:28)
[2022-08-26 17:29] VITALS: BP 106/77; PULSE 62; RESP 15; O2SAT 98
== END 2022-08-26 17:31 | disposition home or self-care (01) ==
PROVIDERS: Emergency Provider Emergency Medicine; PCP Family Medicine; Visit Provider Emergency Medicine
DX: J20.9 Acute bronchitis, unspecified (principal); Z79.51 Long term (current) use of inhaled steroids; I10 Essential (primary) hypertension; J45.909 Unspecified asthma, uncomplicated; Z79.52 Long term (current) use of systemic steroids
CPT/HCPCS: 71045; 87428; 99283

== ENCOUNTER → 2023-05-18 | Outpatient (CLI) | payer OTHER, SELFPAY ==
[2023-05-21 18:33] LABS: HPV Reflexed? NOT INDICATED
== END | disposition home or self-care (01) ==
LOC: LABSPEC 15:05
PROVIDERS: PCP Family Medicine; Referring Provider Nurse Practitioner Women's Health; Visit Provider Nurse Practitioner Women's Health
DX: Z12.4 Encounter for screening for malignant neoplasm of cervix (principal)
CPT/HCPCS: 88175; G0145